=== PATIENT | female | born 1975 | race Asian ===

== ENCOUNTER → 2017-11-06 09:05 | Outpatient (CLI) | payer OTHER, SELFPAY ==
--- NOTE | 2017-11-06 | DI.RAD.S_ITS ---
PROCEDURE: XR KNEE LT 3V INDICATIONS: ANTERIOR KNEE PAIN, POST FALL TECHNIQUE: 3 views of the knee were acquired. COMPARISON: None. FINDINGS: Bones: No fractures or dislocations. No suspicious bony lesions. Soft tissues: No joint effusion. No suspicious soft tissue calcifications. IMPRESSION: No displaced fracture seen. If there is continued pain, followup exam or additional imaging such as MRI or CT could be performed for further assessment. Dictated by: Merlin Agustin RRA Interpreted: Nadine Henson MD on 11/06/2017 at 10:18 Approved by: Nadine Henson MD, PhD on 11/06/2017 at 14:18
== END ==
PROVIDERS: PCP Family Medicine; Visit Provider Nurse Practitioner Family
DX: M25.562 Pain in left knee (principal)
CPT/HCPCS: 73562

== ENCOUNTER → 2017-12-11 09:46 | Outpatient (CLI) | payer OTHER, SELFPAY ==
--- NOTE | 2017-12-11 | DI.MG.S_ITS ---
BILATERAL DIGITAL SCREENING MAMMOGRAM 3D/2D WITH CAD: 12/11/2017 CLINICAL: Routine screening. Baseline exam. No prior exams were available for comparison. The tissue of both breasts is heterogeneously dense. This may lower the sensitivity of mammography. Current study was also evaluated with a Computer Aided Detection (CAD) system. No significant masses, calcifications, or other findings are seen in either breast. IMPRESSION: NEGATIVE There is no mammographic evidence of malignancy. A 1 year screening mammogram is recommended.(12/12/2018) This exam was interpreted at Station ID: [id number]. NOTE: For mammograms, a report in lay terms will be sent to the patient. Approximately 15% of breast malignancies will not be visualized mammographically. In the management of a palpable breast mass, a negative mammogram must not discourage biopsy of a clinically suspicious lesion. Electronically Signed By: Alfredo church/benny:12/11/2017 11:32:44 letter sent: Normal Exam ACR BI-RADS Category 1: Negative 3341F
== END ==
PROVIDERS: Family Provider Family Medicine; PCP Family Medicine; Visit Provider Family Medicine
DX: Z12.31 Encounter for screening mammogram for malignant neoplasm of breast (principal)
CPT/HCPCS: 77063; 77067

== ENCOUNTER → 2018-04-22 10:12 | Outpatient (CLI) | payer OTHER, SELFPAY ==
--- NOTE | 2018-04-22 | DI.US.S_ITS ---
PROCEDURE: US OB <= 14 WEEKS FETUS INDICATIONS: SIZE AND DATING OUTSIDE/PRIOR DATING DATA: Last menstrual period (LMP): 02/28/18. LMP-based estimated date of delivery (GOKUL): 12/05/18. First dating scan (date and location): 04/22/18, [facility]. Estimated date of delivery (GOKUL) from first dating scan: 12/08/18. TECHNIQUE: Real-time scanning was performed of the fetus and maternal pelvic organs, with image documentation. Endovaginal scanning was also performed to better visualize the fetus and maternal ovaries. COMPARISON: None. FINDINGS: Embryo: Average crown-rump length is 1.06 cm which corresponds to 7 week one day plus/-4 days gestation. Cardiac activity is present at the rate of 139 beats per minute. The yolk sac is visible. No perigestational hemorrhage. Measurement variability in dating: +/- 4 weeks by LMP, +/- 7 days by mean sac diameter (use before 6 weeks gestation if crown-rump length not able to be measured), +/- 5 days by crown-rump length (up to 8 weeks 6 days gestation), +/- 7 days by crown-rump length (up to 13 weeks 6 days gestation). Maternal organs: Ovaries both visualized. Right ovary measures 2.0 x 1.7 x 1.8 cm. Left ovary measures 3.6 x 1.9 x 2.0 cm. The cervix is closed. No myometrial masses. Within the right fundal endometrium, there is an ovoid fluid collection measuring 1.4 x 0.9 x 1.2 cm containing low level internal echoes. This is adjacent to but separate from the gestational sac. No peripheral or internal vascular flow. IMPRESSION: 1. Single living intrauterine with a gestational age of 7 weeks one day and estimated due date 12/08/18. 2. 1.4 cm avascular fluid collection adjacent to the gestational sac, likely inactive implantation bleed. 3. Closed cervix. Dictated by: Yuliana Kong M.D. on 04/22/2018 at 12:42 Approved by: Yuliana Kong M.D. on 04/22/2018 at 12:52
== END ==
PROVIDERS: Family Provider Family Medicine; PCP Family Medicine; Visit Provider Family Medicine
DX: Z34.91 Encounter for supervision of normal pregnancy, unspecified, first trimester (principal); Z3A.01 Less than 8 weeks gestation of pregnancy
CPT/HCPCS: 76801

== ENCOUNTER 2018-10-26 08:59 | Outpatient (CLI) | payer OTHER, SELFPAY | END 2018-10-26 09:56 | disposition home or self-care (01) | LOC: LABOR 09:25 → OB 12:28 | PROVIDERS: Family Provider Family Medicine; PCP Family Medicine; Visit Provider Family Medicine | DX: O24.419 Gestational diabetes mellitus in pregnancy, unspecified control (principal); Z3A.33 33 weeks gestation of pregnancy | CPT/HCPCS: 59025; G0378; G0379 ==

== ENCOUNTER 2018-11-01 17:01 | Outpatient (CLI) | payer OTHER, SELFPAY | END 2018-11-01 18:10 | disposition home or self-care (01) | LOC: OB 11-03 09:36 | PROVIDERS: Family Provider Family Medicine; PCP Family Medicine; Visit Provider Family Medicine | DX: O24.419 Gestational diabetes mellitus in pregnancy, unspecified control (principal); Z3A.34 34 weeks gestation of pregnancy | CPT/HCPCS: 59025; G0378; G0379 ==

== ENCOUNTER 2018-11-06 14:48 | Outpatient (CLI) | payer OTHER, SELFPAY | END 2018-11-06 15:24 | disposition home or self-care (01) | LOC: LABOR 15:09 → OB 11-10 11:03 | PROVIDERS: Family Provider Family Medicine; PCP Family Medicine; Visit Provider Family Medicine | DX: O24.415 Gestational diabetes mellitus in pregnancy, controlled by oral hypoglycemic drugs (principal); Z3A.35 35 weeks gestation of pregnancy | CPT/HCPCS: 59025; G0378; G0379 ==

== ENCOUNTER 2018-11-11 13:21 | Outpatient (CLI) | payer OTHER, SELFPAY | END 2018-11-11 14:12 | disposition home or self-care (01) | LOC: LABOR 13:24 → OB 11-17 13:40 | PROVIDERS: Family Provider Family Medicine; PCP Family Medicine; Visit Provider Family Medicine | DX: O24.419 Gestational diabetes mellitus in pregnancy, unspecified control (principal); Z3A.36 36 weeks gestation of pregnancy | CPT/HCPCS: 59025; 87081; G0378; G0379 ==

== ENCOUNTER → 2018-11-11 15:33 | Outpatient (ROUT) | payer OTHER, SELFPAY | PROVIDERS: Family Provider Family Medicine; PCP Family Medicine; Visit Provider Family Medicine | DX: Z34.80 Encounter for supervision of other normal pregnancy, unspecified trimester (principal) | CPT/HCPCS: 87081 ==

== ENCOUNTER 2018-11-13 14:57 | Outpatient (CLI) | payer OTHER, SELFPAY | END 2018-11-13 15:40 | disposition home or self-care (01) | LOC: LABOR 15:58 → OB 11-17 13:44 | PROVIDERS: PCP Family Medicine; Visit Provider Family Medicine | DX: O24.415 Gestational diabetes mellitus in pregnancy, controlled by oral hypoglycemic drugs (principal); Z3A.37 37 weeks gestation of pregnancy | CPT/HCPCS: 59025; G0378; G0379 ==

== ENCOUNTER 2018-11-18 09:19 | Outpatient (CLI) | payer OTHER, SELFPAY | END 2018-11-18 09:52 | disposition home or self-care (01) | LOC: LABOR 09:23 → OB 15:03 | PROVIDERS: PCP Family Medicine; Visit Provider Family Medicine | DX: O24.419 Gestational diabetes mellitus in pregnancy, unspecified control (principal); Z3A.37 37 weeks gestation of pregnancy | CPT/HCPCS: 59025; G0378; G0379 ==

== ENCOUNTER 2018-11-20 09:54 | Outpatient (CLI) | payer OTHER, SELFPAY | END 2018-11-20 10:30 | disposition home or self-care (01) | LOC: LABOR 10:30 → OB 11-26 07:44 | PROVIDERS: PCP Family Medicine; Visit Provider Family Medicine | DX: O24.415 Gestational diabetes mellitus in pregnancy, controlled by oral hypoglycemic drugs (principal); Z3A.37 37 weeks gestation of pregnancy | CPT/HCPCS: 59025; G0378; G0379 ==

== ENCOUNTER 2018-11-23 12:09 | Outpatient (CLI) | payer OTHER, SELFPAY | END 2018-11-23 12:57 | disposition home or self-care (01) | LOC: LABOR 12:39 → OB 11-26 13:31 | PROVIDERS: PCP Family Medicine; Visit Provider Family Medicine | DX: O24.415 Gestational diabetes mellitus in pregnancy, controlled by oral hypoglycemic drugs (principal); Z3A.37 37 weeks gestation of pregnancy | CPT/HCPCS: 59025; 76815; G0378; G0379 ==

== ENCOUNTER → 2018-11-23 12:12 | Outpatient (CLI) | payer OTHER, SELFPAY ==
--- NOTE | 2018-11-23 | DI.US.S_ITS ---
PROCEDURE: US OB LIMITED INDICATIONS: GESTATIONAL DIABETES,SIZE GREATER THAN DATES OUTSIDE/PRIOR DATING DATA: Last menstrual period (LMP): 02/28/18. LMP-based estimated date of delivery (GOKUL): 12/05/18. First dating scan (date and location): 04/22/18, [facility]. Estimated date of delivery (GOKUL) from first dating scan: 12/08/18. TECHNIQUE: Real-time scanning was performed of the fetus, with image documentation and biometric measurements. Endovaginal scanning: No COMPARISON: [facility], , OB <= 14 WEEKS FETUS, 04/22/2018, 10:38. FINDINGS: General: A single living intrauterine gestation is present. Presentation: Vertex. Placenta: Placental position is fundal, without previa. Amniotic fluid index: 15.4 cm, normal range is 5-24 cm. heart rate: 157 beats per minute. Maternal cervical canal: Reported cm long. Normal lower limit is 2.5 cm. biometrics: Biparietal diameter: 38 weeks 0 days Head circumference: 39 weeks 2 days Abdominal circumference: 39 weeks 1 day Femur length: 37 weeks 4 days Estimated gestational age from initial scan: 37 weeks 6 days Composite gestational age from present scan: 38 weeks 1 day Estimated weight and percentile: 3558 g; 81st percentile Measurement variability for biometric dating: +/- 7 days from 14 weeks to 15 weeks 6 days gestation, +/- 10 days from 16 weeks to 21 weeks 6 days gestation, +/- 2 weeks from 22 weeks to 27 weeks 6 days gestation, +/- 3 weeks for 28 weeks gestation or later. weight reference: 4500 g or EFW >90/95% is considered macrosomia or large for gestational age. EFW <10% is small for gestational age. EFW 5% or less is considered intra-uterine growth restriction. Other: Not applicable. IMPRESSION: Single living IUP redemonstrated and interval growth is normal. Dictated by: Meriln MAYEN Interpreted: Nadine Henson MD on 11/23/2018 at 14:34 Approved by: Nadine Henson MD, PhD on 11/23/2018 at 15:16
== END ==
PROVIDERS: PCP Family Medicine; Visit Provider Family Medicine
DX: O24.419 Gestational diabetes mellitus in pregnancy, unspecified control (principal); O36.63X0 Maternal care for excessive fetal growth, third trimester, not applicable or unspecified; Z3A.38 38 weeks gestation of pregnancy
CPT/HCPCS: 76815

== ENCOUNTER 2018-11-25 10:14 | Outpatient (CLI) | payer OTHER, SELFPAY | END 2018-11-25 11:32 | disposition home or self-care (01) | LOC: OB 11-26 13:32 | PROVIDERS: PCP Family Medicine; Visit Provider Family Medicine | DX: O24.415 Gestational diabetes mellitus in pregnancy, controlled by oral hypoglycemic drugs (principal); Z3A.38 38 weeks gestation of pregnancy | CPT/HCPCS: 59025; G0378; G0379 ==

== ENCOUNTER 2018-11-29 11:51 | Outpatient (CLI) | payer OTHER, SELFPAY | END 2018-11-29 12:45 | disposition home or self-care (01) | LOC: LABOR 11:56 → OB 12-01 13:18 | PROVIDERS: PCP Family Medicine; Visit Provider Family Medicine | DX: O24.419 Gestational diabetes mellitus in pregnancy, unspecified control (principal); Z3A.38 38 weeks gestation of pregnancy | CPT/HCPCS: 59025; G0378; G0379 ==

== ENCOUNTER 2018-12-01 18:14 | Inpatient (IN) | payer OTHER, SELFPAY ==
[2018-12-01 18:47] VITALS: BP 114/77
[2018-12-01] MEDS: miSOPROStol 25 MCG TABLET VAG (19:52)
[2018-12-02 00:28] LABS: Add Manual Diff / Slide Review NO; Basophils Absolute Auto 0 /uL (0-100); Basophils Percent Auto 0.3 % (0-2); Eosinophils Absolute Auto 0 /uL (0-450); Eosinophils Percent Auto 0.5 % (2-4); Hematocrit 33.2 % (36-46); Hemoglobin 11.4 g/dL (12.0-16.0); Lymphocytes Absolute Auto 1200 /uL (1100-4500); Lymphocytes Percent Auto 16.6 % (25-40); Mean Corpuscular HGB Conc 34.4 % (30-36); Mean Corpuscular Hemoglobin 30.5 PG (26-34); Mean Corpuscular Volume 88.7 fL (80-100); Monocytes Absolute Auto 500 /uL (0-900); Neutrophils Absolute Auto 5600 /uL (1500-7000); Neutrophils Percent Auto 75.6 % (50-75); Platelet Count 218 X10^3/uL (150-400); Red Blood Cell Count 3.75 X10^6/uL (4.0-5.2); Red Cell Distribution Width 14.2 % (11.6-14.8); White Blood Cell Count 7.4 X10^3/uL (4.5-11.0)
[2018-12-02] MEDS: LACTATED RINGERS 1,000 ML 100 ML IV ×2 (06:58→11:38)
[2018-12-02] MEDS: OXYTOCIN PREMIX 30 UNIT/500 ML PLAST..BAG IV (06:59)
[2018-12-02] MEDS: FENT 2MCG/ML BUPIV 0.125% EPI 200 MCG/100 ML PLAST..BAG 10 MCG EPIDURAL (11:40)
[2018-12-02] MEDS: ACETAMINOPHEN 325 MG TABLET 650 MG PO (14:37)
[2018-12-02] MEDS: ONDANSETRON 4 MG/2 ML INJ IV (14:38)
--- NOTE | 2018-12-02 18:30 | PM.OBPRVD ---
 Events: Gestational Diabetes Labor & Delivery Delivery date: 12/02/18 Cervical ripening method: per misoprostal protocol Induction method: per pitocin protocol Delivery augmentation: rupture of membranes Delivery monitor: external FHT and external uterine Route of delivery: vacuum extraction Indication for instrumentation: nonreassuring FHR tracing Episiotomy description: Midline L&D Laceration Description: Perineal - 2nd Degree Delivery repair: chromic Estimated blood loss (mL): 300 Anesthesia type: Epidural Complications: none Narrative: Identifying data: 43-year-old at 3917 weeks estimated gestational age based on an EDC of 12/08/2018 who had a complicated by gestational diabetes which was well managed on metformin which she was actually on prior to conception. was uncomplicated. She had routine testing for gestational diabetic mother's and was brought in for cervical ripening and induction due to 39 weeks gestation with gestational diabetes. GBS negative. Stage I: 5 hours and 30 minutes Patient received 1 dose of Cytotec visit night prior to delivery. Patient was 3 cm 80% effaced -1 station at the time of induction. Pitocin was started at approximately 7:00 a.m. and maximum Pitocin was 14 milliunits. Artificial rupture of membranes was performed at 9:48 a.m. with clear liquid. Which was 5 hours and 30 minutes prior to delivery. This marked active labor. External heart monitor was used throughout stage I. Baseline 140s to 150s with moderate variability, accelerations and variable decelerations. Category 1 tracing throughout. Uterine contractions were regular 2-4 minutes and initially baby was felt to be in occiput transverse left position. Epidural was placed at approximately 11:20 a.m. and patient had excellent pain relief. Stage II lasted 1 hour and 38 minutes Patient was noted to be complete at 3:26 p.m.. She began pushing at 3:51 p.m.. Shortly prior to this baby had deep decelerations and change in baseline and Pitocin was turned down to 10 fuad units. Baby recovered with a baseline in the 140s to 150s and continue with moderate variability but did have decelerations with pushing. We tried many different positions with pushing and patient was feeling in that she could not feel the contractions and we ended up turning off the epidural at 4:28 p.m.. Patient had better pushing at this point. With each contraction decelerations to the 90s but good recovery and moderate variability. Patient was making good progress and as the head descended heart tones decreased into the 70s will almost immediate recovery back to the 120s 130s and baseline of 140s. As a baby was +2 to +3 deceleration persisted as the baby stayed down into the 70s and midline episiotomy second-degree was performed. Also vacuum assisted delivery with 1 pull and 1 application that lasted for approximately 45-60 seconds and then the head was delivered. Baby was clearly was a [facility] not completely occiput transverse there was a nuchal cord that was moderately tight that was reduced on the perineum. Baby shoulders and body were delivered without difficulty and baby was placed on mom's chest. Baby had terminal meconium. Baby quickly recovered and was vigorous with Apgars of 9 at 1 minute and 9 at 5 minute and weight was 7 lb 14 oz with a 14 in head Stage III lasted 4 minutes Normal spontaneous vaginal delivery of an intact chny-ye-feykilbhlr calcified placenta with a central cord insertion and a 3 vessel cord. There is no evidence of cervical vaginal labial or periurethral lacerations. There was a second-degree midline episiotomy which was repaired in the usual fashion with 3 0 and 2 0 chromic. The Pitocin was run in. There was 300 cc estimated blood loss. At the time this dictation both mom and baby are in stable condition Plan for aftercare: routine
--- NOTE | 2018-12-02 18:43 | PM.OBHP.1 ---
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 Patient denies any complaints of contractions although she is noted to have irregular contractions on the monitor. She denies any leakage of fluid, headaches, swelling, mid epigastric pain. Her past OB history is remarkable for 12/11/2006 at 40 weeks gestation she had a normal spontaneous vaginal delivery of a viable male weighing 8 lb 15 oz with epidural in [place] his name is Brody 04/25/2009 at 40 weeks gestation and normal spontaneous vaginal delivery of a viable male infant weighing 9 lb 3 oz named los Dougherty 02/04/2011 at 39 weeks gestation normal spontaneous vaginal delivery with an epidural of a viable male infant weighing 8 lb 2 oz Past medical history: Impaired glucose tolerance. Patient had recently been placed on metformin right prior to conception Past surgical history unremarkable Health related behavior: Patient does not smoke and never has, no alcohol use or illicit drug use Social history: Patient is and lives in and of [facility] with her and 3 sons. 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 Patient had approximately 12 visits. Patient had 22 lb weight gain. Blood pressures were 110-124/60-74 Cell free DNA was negative showing normal XX chromosomes. Patient continued on her metformin and monitored blood sugars throughout the . She had well-controlled blood sugars and started twice weekly NSTs at approximately 34 weeks gestation. We did not do a glucose tolerance test. Serology O positive, antibody screen negative, rubella immune, GBS negative, maternal serum AFP negative Pap normal. HIV an hepatitis-C and hepatitis-B all negative chlamydia and gonorrhea negative septal is negative Family history no history of complications or congenital disorders or defects some family history of diabetes Evaluation Evaluation Laboratory results: Laboratory Tests 12/02/18 12/02/18 00:10 00:10 WBC 7.4 RBC 3.75 L Hgb 11.4 L Hct 33.2 L MCV 88.7 MCH 30.5 MCHC 34.4 RDW 14.2 Plt Count 218 Neut % (Auto) 75.6 H Lymph % (Auto) 16.6 L Mchenry % (Auto) 7.0 Eos % (Auto) 0.5 L Baso % (Auto) 0.3 Neut # (Auto) 5600 Lymph # (Auto) 1200 Mchenry # (Auto) 500 Eos # (Auto) 0 Baso # (Auto) 0 Blood Type O Positive Antibody Screen Negative [facility], [facility] Social History Smoking Status: Never smoker Social History Smoking Status: Never smoker Meds Home Medications and Allergies Home Medications Medication Instructions Recorded Confirmed Type No Known Home Medications 12/02/18 12/02/18 History Allergies Allergy/AdvReac Type Severity Reaction Status Date / Time From BACTRIM Allergy Unknown Uncoded 06/25/17 12:23 Review of Systems Review of Systems Narrative: Blood sugars have been well controlled. Patient denies any leaking fluid or change in discharge. Patient denies any swelling or headache ROS Unobtainable: All systems reviewed & are unremarkable except as noted in HPI and below Exam Vital Signs (past 8 hours): Afebrile, vital signs are stable HEENT: Unremarkable Neck: Supple without adenopathy or thyromegaly Chest: Clear to auscultation without wheezes rhonchi or crackles Cor: Regular rate and rhythm without any murmur Abdomen: Positive bowel sounds, soft, nontender, nondistended, gravid, vertex current Scot in left occiput transverse position via ultrasound. Estimated weight 7 half to 8 lb Extremities: No edema pulses intact Cervical exam 3-4 cm 80% effaced negative wanted -2 station intact bag of water Baseline heart tones in the 140s to 150s with moderate variability and accelerations Objective Labs Result Diagrams: 12/02/18 00:10 Labs: Laboratory Results - last 24 hr 12/02/18 12/02/18 00:10 00:10 WBC 7.4 RBC 3.75 L Hgb 11.4 L Hct 33.2 L MCV 88.7 MCH 30.5 MCHC 34.4 RDW 14.2 Plt Count 218 Neut % (Auto) 75.6 H Lymph % (Auto) 16.6 L Mchenry % (Auto) 7.0 Eos % (Auto) 0.5 L Baso % (Auto) 0.3 Neut # (Auto) 5600 Lymph # (Auto) 1200 Mchenry # (Auto) 500 Eos # (Auto) 0 Baso # (Auto) 0 Blood Type O Positive Antibody Screen Negative Assessment and Plan Assessment and Plan Assessment and Plan narrative: Term gestation with gestational diabetes in multiple wrist patient without other complications of Plan expectant management A rum clear fluid Continue Pitocin Epidural and becomes uncomfortable GBS negative O positive, rubella immune Status post Tdap 09/15/2018
[2018-12-02] MEDS: DERMOPLAST SPRAY 20% 60 ML 1 SPRAY TOP (21:04)
[2018-12-02] MEDS: IBUPROFEN 600 MG TABLET PO (21:04)
[2018-12-03] MEDS: IBUPROFEN 600 MG TABLET PO ×2 (03:05→08:58)
[2018-12-03] MEDS: PRENATAL VIT,CALC/IRON/FOLIC 1 TABLET 1 TAB PO (08:58)
[2018-12-03] MEDS: DOCUSATE 250 MG CAPSULE PO (08:58)
[2018-12-03 12:46] VITALS: BP 123/76; PULSE 71; RESP 17; TEMP 36.4
--- NOTE | 2018-12-03 14:01 | P.DS_ITS ---
History of Present Illness History of Present Illness Chief complaint: INDUCED Discharge Providers Provider Date of admission: 12/01/18 18:14 Discharge Date: 12/03/18 Primary care physician: Magdalena Pineda MD Consults: 12/01/18 18:29 Consult to Anesthesiology Urgent Comment: Consulting Provider: Anesthesiologist Reason for consultation: pain 12/02/18 18:[address] Routine Comment: Discharge provider: Magdalena Pineda MD Summary Hospital Course Discharge Diagnosis: Term gestation status post normal spontaneous vaginal delivery Gestational diabetes Hospital Course: Patient was admitted to the hospital for cervical ripening and then induction for 39 weeks gestation and gestational diabetes. She had a fairly rapid labor and vacuum assisted delivery due to a included presentation of baby. She had epidural with provided excellent anesthesia. She had no complications. She had unremarkable course. She was tolerating p.o. without difficulty and urinating and pain well controlled just with ibuprofen. Patient with previous issues with activity she in and baby was able to latch but was also given bottle feeds. Patient will try pumping at home. Lochia decreasing. No headaches. Patient was discharged home in stable condition with routine precautions. Pelvic rest. No heavy lifting. Discussed instructions of bleeding signs symptoms of infection and she will follow up with me in 2 weeks. She will go home on a stool softener and she will use [id number] ibuprofen and we will provide a few tablets of hydrocodone should she need something stronger for pain. Status at Discharge Cognitive/behavioral status at discharge: oriented Overall status at discharge: patient is progressing back to baseline Time Spent with Patient Time spent: Less than 30 minutes Exam Vital Signs (past 8 hours): - 12/03/18 12:46 Temperature 97.6 F Pulse Rate 71 Respiratory Rate 17 Blood Pressure 123/76 Objective Labs Result Diagrams: 12/03/18 04:50 Labs: Laboratory Results - last 24 hr 12/03/18 04:50 Hgb 11.0 L Hct 32.0 L Discharge Plan Discharge Plan Patient Disposition: Home Discharge Med Rec/Prescriptions Prescriptions: New hydrocodone-acetaminophen 5-325 mg Tablet 1 tab PO Q4HR PRN (Reason: Pain, Moderate (4-6)) Qty: 10 RF: 0 docusate sodium 250 mg Capsule 250 mg PO DAILY Qty: 30 RF: 0 Prenatabs Rx 29 mg iron- 1 mg Tablet 1 tab PO DAILY Qty: 0 RF: 0 Follow up/Referrals: Magdalena Pineda MD [Primary Care Provider] - 2 Weeks (Dec 17, 1:30pm with Dr Pineda) Visit Report/Discharge Packet Stand Alone Forms: Discharge: Care Discharge Data Primary Care Provider: Magdalena Pineda
== END 2018-12-03 14:50 | disposition home or self-care (01) | DRG 807 ==
PROVIDERS: Admitting Provider Family Medicine; PCP Family Medicine; Visit Provider Family Medicine
DX: O24.425 Gestational diabetes mellitus in childbirth, controlled by oral hypoglycemic drugs (principal); Z37.0 Single live birth; Z3A.39 39 weeks gestation of pregnancy; O64.0XX0 Obstructed labor due to incomplete rotation of fetal head, not applicable or unspecified; O76 Abnormality in fetal heart rate and rhythm complicating labor and delivery; O70.1 Second degree perineal laceration during delivery
CPT/HCPCS: 01967; 36415; 59050; 59200; 76815; 85014; 85018; 85025; 86850; 86900; 86901; J2405; J2590

== ENCOUNTER → 2021-12-03 16:23 | Outpatient (CLI) | payer OTHER, SELFPAY ==
--- NOTE | 2021-12-03 16:29 | DI.RAD.S_ITS ---
PROCEDURE: XR FOOT LT MIN 3V INDICATIONS: LEFT FOOT INJURY TECHNIQUE: 3 views of the foot were acquired. COMPARISON: None. FINDINGS: Bones: No fractures or dislocations. No suspicious bony lesions. Mild periarticular osteophyte formation at the 1st metatarsophalangeal joint. Soft tissues: No tibiotalar joint effusion. Achilles tendon appears normal. IMPRESSION: 1. 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 2. No acute fracture. No osseous lesion. If symptoms and/or clinical suspicion for pathology persist, further assessment with repeat, or advanced imaging (e.g., CT, MRI, or bone scan) may be helpful for further assessment. Dictated by: Jake Coy M.D. on 12/03/2021 at 16:59 Approved by: Jake Coy M.D. on 12/03/2021 at 17:00
--- NOTE | 2021-12-03 16:29 | DI.RAD.S_ITS ---
PROCEDURE: XR ANKLE LT MIN 3V INDICATIONS: LEFT FOOT INJURY TECHNIQUE: 3 views of the ankle were acquired. COMPARISON: None. FINDINGS: Bones: No fractures or dislocations. Ankle mortise is normally aligned. No suspicious bony lesions. Soft tissues: No tibiotalar joint effusion. Achilles tendon appears normal. IMPRESSION: No acute fracture. No osseous lesion. If symptoms and/or clinical suspicion for pathology persist, further assessment with repeat, or advanced imaging (e.g., CT, MRI, or bone scan) may be helpful for further assessment. Dictated by: Jake Coy M.D. on 12/03/2021 at 16:57 Approved by: Jake Coy M.D. on 12/03/2021 at 16:57
== END ==
PROVIDERS: PCP Family Medicine; Referring Provider Family Medicine; Visit Provider Family Medicine
DX: M25.572 Pain in left ankle and joints of left foot (principal); M19.072 Primary osteoarthritis, left ankle and foot
CPT/HCPCS: 73610; 73630

== ENCOUNTER → 2022-01-25 09:52 | Outpatient (CLI) | payer OTHER, SELFPAY ==
--- NOTE | 2022-01-25 09:54 | DI.MG.S_ITS ---
BILATERAL DIGITAL SCREENING MAMMOGRAM 3D/2D WITH CAD: 01/25/2022 CLINICAL: Routine screening. Comparison is made to exam dated: 12/11/2017 mammogram - [facility]. Both breasts are heterogeneously dense, which may obscure small masses (category c / 51-75% glandular tissue). Current study was also evaluated with a Computer Aided Detection (CAD) system. No significant masses, calcifications, or other findings are seen in either breast. There has been no significant interval change. IMPRESSION: NEGATIVE There is no mammographic evidence of malignancy. A 1 year screening mammogram is recommended. This exam was interpreted at Station ID: [id number]. NOTE: For mammograms, a report in lay terms will be sent to the patient. Approximately 15% of breast malignancies will not be visualized mammographically. In the management of a palpable breast mass, a negative mammogram must not discourage biopsy of a clinically suspicious lesion. Electronically Signed By: Jose Eduardo wade/benny:01/25/2022 15:19:05 letter sent: Normal Exam ACR BI-RADS Category 1: Negative 3341F
== END ==
PROVIDERS: PCP Family Medicine; Referring Provider Family Medicine; Visit Provider Family Medicine
DX: Z12.31 Encounter for screening mammogram for malignant neoplasm of breast (principal)
CPT/HCPCS: 77063; 77067

== ENCOUNTER → 2023-03-26 10:07 | Outpatient (CLI) | payer OTHER, SELFPAY ==
--- NOTE | 2023-03-26 | DI.MG.S_ITS ---
BILATERAL DIGITAL SCREENING MAMMOGRAM 3D/2D WITH CAD: 03/26/2023 CLINICAL: Routine screening. Comparison is made to exams dated: 01/25/2022 mammogram and 12/11/2017 mammogram - [facility]. Both breasts are heterogeneously dense, which may obscure small masses (category c / 51-75% glandular tissue). Current study was also evaluated with a Computer Aided Detection (CAD) system. No significant masses, calcifications, or other findings are seen in either breast. There has been no significant interval change. IMPRESSION: NEGATIVE There is no mammographic evidence of malignancy. A 1 year screening mammogram is recommended. Based on the Tyrer Cuzick model (a risk assessment model) the patient's lifetime risk is 15.2% and her 10 year risk is 3.0%. According to the ACR, ACS, and NCCN guidelines, an annual breast MRI exam along with mammogram is recommended if the patient's lifetime risk is 20% or greater. This exam was interpreted at Station ID: [id number]. NOTE: For mammograms, a report in lay terms will be sent to the patient. Approximately 15% of breast malignancies will not be visualized mammographically. In the management of a palpable breast mass, a negative mammogram must not discourage biopsy of a clinically suspicious lesion. Electronically Signed By: Obie green/benny:03/26/2023 17:12:02 letter sent: Normal Exam ACR BI-RADS Category 1: Negative 3341F
== END ==
LOC: MAMMO 10:09
PROVIDERS: PCP Registered Nurse Diabetes Educator; Referring Provider Registered Nurse Diabetes Educator; Visit Provider Registered Nurse Diabetes Educator
DX: Z12.31 Encounter for screening mammogram for malignant neoplasm of breast (principal); R92.333 Mammographic heterogeneous density, bilateral breasts
CPT/HCPCS: 77063; 77067

== ENCOUNTER → 2023-05-16 09:10 | Outpatient (CLI) | payer OTHER, SELFPAY ==
[2023-05-16 10:43] LABS: Cholesterol 223 mg/dL (140-199); HDL Cholesterol 75 mg/dL (40-60); LDL Cholesterol Calculated 130 mg/dL (<100); Triglycerides 89 mg/dL (35-150)
[2023-05-16 11:09] LABS: TSH w/ Reflex to FT4 1.77 uIU/mL (0.47-4.68)
== END ==
LOC: LAB 09:11
PROVIDERS: PCP Family Medicine; Referring Provider Family Medicine; Visit Provider Family Medicine
DX: E78.5 Hyperlipidemia, unspecified (principal)
CPT/HCPCS: 36415; 80061; 84443

== ENCOUNTER → 2023-11-14 09:24 | Outpatient (CLI) | payer OTHER, SELFPAY ==
[2023-11-14 10:59] LABS: Cholesterol 246 mg/dL (140-199); HDL Cholesterol 83 mg/dL (40-60); LDL Cholesterol Calculated 138 mg/dL (<100); Triglycerides 126 mg/dL (35-150)
[2023-11-14 11:19] LABS: Hemoglobin A1C% w Est Avg Glu 5.4 % (4.0-6.0)
== END ==
PROVIDERS: PCP Family Medicine; Referring Provider Family Medicine; Visit Provider Family Medicine
DX: E78.5 Hyperlipidemia, unspecified (principal); E11.9 Type 2 diabetes mellitus without complications
CPT/HCPCS: 36415; 80061; 83036

== ENCOUNTER → 2024-04-06 11:32 | Outpatient (CLI) | payer OTHER, SELFPAY ==
--- NOTE | 2024-04-06 11:34 | DI.MG.S_ITS ---
BILATERAL DIGITAL SCREENING MAMMOGRAM 3D/2D WITH CAD: 04/06/2024 CLINICAL: Routine screening. Comparison is made to exams dated: 03/26/2023 mammogram, 01/25/2022 mammogram, and 12/11/2017 mammogram - [facility]. The breasts are heterogeneously dense, which may obscure small masses (category c / 51-75% glandular tissue). Current study was also evaluated with a Computer Aided Detection (CAD) system. No significant masses, calcifications, or other findings are seen in either breast. There has been no significant interval change. IMPRESSION: NEGATIVE There is no mammographic evidence of malignancy. A 1 year screening mammogram is recommended. Based on the Tyrer Cuzick model (a risk assessment model) the patient's lifetime risk is 15.2% and her 10 year risk is 3.1%. According to the ACR, ACS, and NCCN guidelines, an annual breast MRI exam along with mammogram is recommended if the patient's lifetime risk is 20% or greater. This exam was interpreted at Station ID: [id number]. NOTE: For mammograms, a report in lay terms will be sent to the patient. Approximately 15% of breast malignancies will not be visualized mammographically. In the management of a palpable breast mass, a negative mammogram must not discourage biopsy of a clinically suspicious lesion. Electronically Signed By: Fahad pettit/benny:04/06/2024 14:03:25 letter sent: Normal Exam ACR BI-RADS Category 1: Negative
== END ==
PROVIDERS: PCP Family Medicine; Referring Provider Family Medicine; Visit Provider Family Medicine
DX: Z12.31 Encounter for screening mammogram for malignant neoplasm of breast (principal); R92.333 Mammographic heterogeneous density, bilateral breasts
CPT/HCPCS: 77063; 77067